=== PATIENT | female | born 1965 | race African-American/Black ===

== ENCOUNTER 2022-05-26 11:15 | Emergency (ER) | payer BC ==
[2022-05-26 11:22] VITALS: BMI 40.7
[2022-05-26] MEDS ORDERED: BEBTELOVIMAB (EUA) 175 MG/2 ML VIAL IVPUSH ONE (11:41)
[2022-05-26 13:54] VITALS: BP 112/64; PULSE 89; TEMP 98.4
== END 2022-05-26 14:36 | disposition home or self-care (01) ==
LOC: JER 11:15
PROC: 3E033GC Introduction of Other Therapeutic Substance into Peripheral Vein, Percutaneous Approach (ICD-10-PCS; principal; 2022-05-26)
DX: U07.1 COVID-19 (principal)
CPT/HCPCS: 96374; 99284-25; M0222; Q0222